=== PATIENT | male | born 1995 | race Caucasian/White ===

== ENCOUNTER 2018-01-23 21:17 | Emergency (ER) | payer OTHER ==
[~2018-01-23] VITALS: Ht 185.4 cm; Wt 73.8 kg
[2018-01-23 21:23] VITALS: TEMP 37.3; Ht 185.4 cm; Wt 73.8 kg
--- NOTE | 2018-01-23 22:41 | EMERGENCY ROOM VISIT NOTE ---
History Report prepared by Laurence: Chikis Carrion Under the Supervision of: Dr. Sadi Sanford M.D. First contact with patient: 21:36 Chief Complaint: TESTICULAR PAIN Stated Complaint: PAIN IN TESTICLES, SWELLING Nursing Triage Summary: testicular aching starting today, now swelling, states pain is manageable at present History of Present Illness The patient is a 22 year old male who presents to the Emergency Room with complaints of persistent groin pain starting earlier today. The patient started having achy bilateral groin pain located around his testicles this morning. 1 hour ago, he started feeling that his epididymis was swollen bilaterally with pain and warmth. He denies any fever, chills, nausea, vomiting, back pain, chest pain, penile lesions, or penile discharge. He wears boxer briefs. He denies any trauma. He notes that he had warts removed from his scrotum 2 days ago. He might have HPV. The area has been sore. He is sexually active. He does not have any concerns for STD exposure. Source of History: patient, spouse/significant other Onset: earlier today Position: other (groin) Quality: ache Timing: other (persistent) Associated Symptoms: No fevers, No chills, No chest pain, No nausea, No vomiting, No back pain Review of Systems See HPI for pertinent positives & negatives. A total of 10 systems reviewed and were otherwise negative. Past Medical & Surgical Medical Problems: (1) No chronic problems Old medical records were reviewed. Nurse's notes were reviewed and I agree with. Family History No pertinent family history stated Social History Smoking Status: Never Smoker Drug Use: none Occupation Status: [employer] student Current/Historical Medications Scheduled Doxycycline Hyclate (Vibramycin), 100 MG PO BID Allergies Coded Allergies: No Known Allergies (Unverified , 01/23/18) Physical Exam Vital Signs Date Time Temp Pulse Resp B/P (MAP) Pulse Ox O2 Delivery O2 Flow Rate FiO2 01/23/18 23:50 80 20 126/72 98 01/23/18 22:02 80 18 140/73 98 Room Air 01/23/18 21:23 37.3 119 18 125/68 97 Room Air Physical Exam General: Non-ill appearing young male in no acute distress. HEENT: Normal cephalic atraumatic. Pupils are equal round and reactive to light. Extraocular movements are intact. Oropharynx is pink with moist mucous membranes. No swelling of the mouth lips or tongue. Neck: Supple with a midline trachea. No meningeal signs or stiffness, no JVD or bruits. No Stridor. Chest: Clear to auscultation bilaterally. No wheezes or rhonchi. No increased work of breathing. Heart: regular rate and rhythm. Abdomen: Soft nontender, nondistended without rebound guarding or rigidity. Extremities: No cyanosis clubbing or edema. No calf tenderness or assymetry Spine/Back. Non tender to palpation. No CVA tenderness : Well healing scabs from recent wart removal in the scrotum area, no evidence of infection or cellulitis. Minimal tenderness of the epididymis bilaterally. No masses. Skin: Good turgor without rashes. Neurologic exam: Cranial nerves two through 12 are intact. Motor and sensation are intact and symmetrical throughout. Medical Decision & Procedures ER Provider Diagnostic Interpretation: Radiology results as stated below per my review and radiologist interpretation: ULTRASOUND TESTES AND SCROTUM CLINICAL HISTORY: Bilateral scrotal pain. Swelling. COMPARISON STUDY: No priors. TECHNIQUE: Real-time, grayscale, and color Doppler sonography of the testes and scrotum is performed. Images are reviewed in the transverse and longitudinal planes. FINDINGS: The testes are normal in size and homogeneous in echotexture. The right testis measures 3.8 x 2.2 x 2.8 cm and the left testis measures 4.1 x 2.0 x 2.8 cm. No intratesticular mass is seen. Testicular blood flow is normal and symmetric. Normal Doppler waveforms are identified in both testes. The epididymal heads are normal in appearance. The right epididymal head measures 1.2 cm in length and the left epididymal head measures 0.8 cm in length. A 3 mm left epididymal head cyst is incidentally noted. There is prominence and hyperemia of the epididymal tails. No varicocele or hydrocele is seen. IMPRESSION: 1. Unremarkable sonographic appearance of the testes. 2. There is prominence and hyperemia of the epididymal tails seen bilaterally. Correlate clinically for evidence of epididymitis. Electronically signed by: Dez Tovar M.D. 01/23/2018 11:04 PM Dictated Date/Time: 01/23/2018 11:02 PM Laboratory Results Test 01/23/18 21:45 Urine Color YELLOW Urine Appearance CLEAR (CLEAR) Urine pH 7.5 (4.5-7.5) Urine Specific Dulce 1.011 (1.000-1.030) Urine Protein NEG (NEG) Urine Glucose (UA) NEG (NEG) Urine Ketones NEG (NEG) Urine Occult Blood NEG (NEG) Urine Nitrite NEG (NEG) Urine Bilirubin NEG (NEG) Urine Urobilinogen NEG (NEG) Urine Leukocyte Esterase NEG (NEG) Laboratory studies as stated above per my review. Medications Administered Medications (Trade) Dose Ordered Sig/Hayden Route Start Time Stop Time Status Last Admin Dose Admin Ceftriaxone Sodium (Rocephin Im) 250 mg NOW STAT IM 01/23/18 23:26 01/23/18 23:28 DC 01/23/18 23:48 250 MG Doxycycline Hyclate (Vibramycin Cap) 100 mg ONE ONCE PO 01/23/18 23:30 01/23/18 23:31 DC 01/23/18 23:30 100 MG ED Course 2143: Past medical records reviewed. The patient was evaluated in room B8, and a complete history and physical examination were performed. 2313: I reevaluated the patient. I updated him on the results. 2326: Rocephin Im 250 mg IM. 2330: Doxycycline Hyclate 100 mg PO. 2332: The patient was swabbed. I discussed the results and treatment plan with him. He verbalized agreement of the treatment plan. The patient was discharged home. Medical Decision Differentials include, but are not limited to; epididymitis, infection, testicular torsion. This patient comes in complaining of bilateral testicular pain. He looks well on exam and he has noticed swelling. He had warts removed recently but the sites do not appear inflamed or infected. Clinically, there is nothing to suggest testicular torsion. Urinalysis was obtained and ultrasound was also obtained. UA was unremarkable with a culture pending. Ultrasound shows no testicular abnormalities or torsion or masses. There is possible epididymitis bilaterally. Given his symptoms I will treat him for epididymitis. I did a urethral swab and this is pending. He was given Rocephin 250 mg IM as well as doxycycline p.o. and sent home with a prescription for doxycycline 100 mg p.o. twice daily for 10 days. He was warned that this could make him sensitive in the sunlight. He was told to use scrotal support and ibuprofen return if: increasing pain, worsening of symptoms, fever or chills, any new problems or concerns. He was happy the plan discharged home and should follow-up with the [facility] this week for recheck. Medication Reconcilliation Current Medication List: was personally reviewed by me Blood Pressure Screening Patient's blood pressure: Elevated blood pressure Blood pressure disposition: Elevated BP felt to be situational Impression Primary Impression: Epididymitis Scribe Attestation The scribe's documentation has been prepared under my direction and personally reviewed by me in its entirety. I confirm that the note above accurately reflects all work, treatment, procedures, and medical decision making performed by me. Departure Information Dispostion Home / Self-Care Prescriptions Doxycycline Hyclate (VIBRAMYCIN) 100 Mg Cap 100 MG PO BID for 10 Days, #20 CAP Prov: Sadi Sanford M.D. 01/23/18 Referrals Elda Johnson M.D. (PCP) Forms HOME CARE DOCUMENTATION FORM, IMPORTANT VISIT INFORMATION, WORK / SCHOOL INSTRUCTIONS Patient Instructions My [facility] Additional Instructions Rest. Use scrotal support Use doxycycline 100 mg twice a day for 10 daysantibiotic. Doxycycline may make you sensitive in the sunlight and keep covered up and avoid sunlight Use ibuprofen 400 mg every 6 hours as needed for pain. Take with food Return if: fever, increasing pain or swelling, worsening symptoms, any new problems or concerns Follow-up with your doctor this week for recheck
--- NOTE | 2018-01-23 23:06 | DIAGNOSTIC IMAGING REPORT ---
ULTRASOUND TESTES AND SCROTUM CLINICAL HISTORY: Bilateral scrotal pain. Swelling. COMPARISON STUDY: No priors. TECHNIQUE: Real-time, grayscale, and color Doppler sonography of the testes and scrotum is performed. Images are reviewed in the transverse and longitudinal planes. FINDINGS: The testes are normal in size and homogeneous in echotexture. The right testis measures 3.8 x 2.2 x 2.8 cm and the left testis measures 4.1 x 2.0 x 2.8 cm. No intratesticular mass is seen. Testicular blood flow is normal and symmetric. Normal Doppler waveforms are identified in both testes. The epididymal heads are normal in appearance. The right epididymal head measures 1.2 cm in length and the left epididymal head measures 0.8 cm in length. A 3 mm left epididymal head cyst is incidentally noted. There is prominence and hyperemia of the epididymal tails. No varicocele or hydrocele is seen. IMPRESSION: 1. Unremarkable sonographic appearance of the testes. 2. There is prominence and hyperemia of the epididymal tails seen bilaterally. Correlate clinically for evidence of epididymitis. Electronically signed by: Dez Tovar M.D. 01/23/2018 11:04 PM Dictated Date/Time: 01/23/2018 11:02 PM
[2018-01-23] MEDS ORDERED: CEFTRIAXONE SOD 350MG/ML 1 GM VIAL IM STA (23:26)
[2018-01-23] MEDS ORDERED: DOXY100C2 PO (23:29)
[2018-01-23] MEDS ORDERED: DOXYCYCLINE HYCLATE 100 MG CAP PO ONE (23:30)
[2018-01-23 23:50] VITALS: BP 126/72; PULSE 80; O2SAT 98
== END 2018-01-23 23:52 | disposition home or self-care (01) ==
LOC: C.EDB 21:18
DX: N45.1 Epididymitis (principal); Z98.890 Other specified postprocedural states